=== PATIENT | female | born 1980 | race Asian ===

== ENCOUNTER 2019-03-18 02:12 | Emergency (ER) | payer OTHER ==
[~2019-03-18] VITALS: Ht 154.9 cm; Wt 52.3 kg
[2019-03-18 03:40] LABS: BASOPHILS % (AUTO) 0.6 % (0.0-2.0); EOSINOPHILS % (AUTO) 2.9 % (1.0-6.0); HEMATOCRIT 39.2 % (36-46); HEMOGLOBIN 12.8 g/dL (12.0-16.0); LYMPHOCYTES # (AUTO) 2.6 K/uL (1.0-4.8); LYMPHOCYTES % (AUTO) 28.7 % (22.0-44.0); MEAN CORPUSCULAR HEMOGLOBIN 29.5 pg (26.0-34.0); MEAN CORPUSCULAR HGB CONC 32.7 G/dL (31.0-37.0); MEAN CORPUSCULAR VOLUME 90 fL (80-100); MONOCYTES # (AUTO) 0.8 K/uL (0.1-1.0); MONOCYTES % (AUTO) 8.9 % (2.0-9.0); NEUTROPHILS # (AUTO) 5.4 K/uL (1.8-7.7); NEUTROPHILS % (AUTO) 58.9 % (40.0-70.0); PLATELET COUNT (AUTO) 255 K/uL (150-450); RED BLOOD CELL COUNT(AUTO) 4.34 MIL/uL (4.00-5.20); RED CELL DISTRIBUTION WIDTH 13.5 % (11.5-14.5)
[2019-03-18 03:48] LABS: ANION GAP 11 mmol/L (8-16); CALCIUM, TOTAL 9.3 mg/dL (8.8-10.5); CARBON DIOXIDE 25 mmol/L (22-29); CHLORIDE 102 mmol/L (98-107); CREATININE 0.71 mg/dL (0.60-1.30); GLOMERULAR FILTR. RATE CALC > 60 mL/min (>60); GLUCOSE,RANDOM 86 mg/dL (70-110); POTASSIUM 3.4 mmol/L (3.5-5.1); SODIUM SERUM 138 mmol/L (136-145); UREA NITROGEN, BLOOD 14 mg/dL (7-18)
[2019-03-18 04:00] LABS: ALANINE AMINOTRANSFERASE 24 U/L (12-78); ALKALINE PHOSPHATASE 55 U/L (46-116); ASPARTATE AMINOTRANSFERASE 21 U/L (15-37); BILIRUBIN,TOTAL 0.2 mg/dL (0.1-1.0); HCG,QUANTITATIVE < 1 mIU/mL (0-6); TOTAL PROTEIN, SERUM 8.1 g/dL (6.4-8.2)
[2019-03-18 04:34] VITALS: BP 138/86
[2019-03-18] MEDS ORDERED: POTASSIUM CHLORIDE 20 MEQ ER TABLET PO ONE (04:45)
== END 2019-03-18 05:09 | disposition home or self-care (01) ==
LOC: EMS 02:13
DX: R00.2 Palpitations (principal); R07.89 Other chest pain; F17.210 Nicotine dependence, cigarettes, uncomplicated
CPT/HCPCS: 93005

== ENCOUNTER 2019-05-13 17:43 | Emergency (ER) | payer OTHER ==
[~2019-05-13] VITALS: Ht 157.5 cm; Wt 56.8 kg
[2019-05-13] MEDS ORDERED: CEPH500 PO (18:14)
[2019-05-13] MEDS ORDERED: METR500 PO (18:14)
[2019-05-13] MEDS ORDERED: FAMO20 PO (18:14)
[2019-05-13] MEDS ORDERED: CLAR250T39 PO (18:14)
[2019-05-13 22:18] VITALS: BP 125/63
== END 2019-05-13 22:20 | disposition home or self-care (01) ==
LOC: EMS 17:45
DX: K21.9 Gastro-esophageal reflux disease without esophagitis (principal); T36.3X5A Adverse effect of macrolides, initial encounter; F17.210 Nicotine dependence, cigarettes, uncomplicated; Z79.899 Other long term (current) drug therapy; Y92.89 Other specified places as the place of occurrence of the external cause